=== PATIENT | male | born 1995 | race Hispanic/Latino ===

== ENCOUNTER → 2022-11-29 | Outpatient (CLI) | payer OTHER ==
[~2022-11-29] VITALS: Ht 25.4 cm; Wt 234.5 kg
== END | disposition home or self-care (01) ==
LOC: DTH 10:06
PROVIDERS: ATTEND Surgery
DX: Z71.3 Dietary counseling and surveillance (principal); E66.01 Morbid (severe) obesity due to excess calories; G47.33 Obstructive sleep apnea (adult) (pediatric); K21.9 Gastro-esophageal reflux disease without esophagitis; Z68.45 Body mass index [BMI] 70 or greater, adult
CPT/HCPCS: 97802

== ENCOUNTER → 2023-01-11 | Outpatient (CLI) | payer BC | END | disposition home or self-care (01) | LOC: RAH 08:46 | PROVIDERS: ATTEND Surgery | DX: K44.9 Diaphragmatic hernia without obstruction or gangrene (principal); K21.9 Gastro-esophageal reflux disease without esophagitis; R14.2 Eructation; E66.01 Morbid (severe) obesity due to excess calories | CPT/HCPCS: 74240 ==

== ENCOUNTER 2023-03-13 16:00 | Inpatient (IN) | payer BC, OTHER ==
[~2023-03-13] VITALS: Ht 177.8 cm; Wt 216.4 kg
[2023-03-14 13:20] VITALS: BP 158/78
[2023-03-14 13:21] LABS: BASOPHILS % (AUTO) 0.5 % (0.0-5.0); HEMATOCRIT 44.3 % (42-54); LYMPHOCYTES % (AUTO) 29.2 % (21.0-51.0); MEAN CORPUSCULAR HEMOGLOBIN 27.8 pg (27.0-33.0); MEAN CORPUSCULAR HGB CONC 32.7 g/dL (32.0-36.0); MONOCYTES % (AUTO) 6.3 % (3.0-13.0); NEUTROPHILS % (AUTO) 62.7 % (40.0-77.0); PLATELET COUNT (AUTO) 422 K/uL (130-400); RED BLOOD CELL COUNT(AUTO) 5.21 MIL/uL (4.50-6.20); RED CELL DISTRIBUTION WIDTH 13.8 % (11.0-15.5); WHITE BLOOD COUNT (AUTO) 10.6 K/uL (4.8-10.8)
[2023-03-14 13:46] LABS: ALBUMIN 4.2 g/dL (3.5-5.0); CREATININE 0.8 mg/dL (0.5-1.5); POTASSIUM 3.7 mmol/L (3.5-5.1); TOTAL PROTEIN, SERUM 8.3 g/dL (6.0-8.3)
[2023-03-14] MEDS ORDERED: BUPR-49 PO (13:50)
[2023-03-14] MEDS ORDERED: VITAD50000 PO (13:50)
[2023-03-14] MEDS ORDERED: MULT1CAP57 TD (13:50)
[2023-03-18] VITALS (26 sets, daily range): BP systolic 122–185; BP diastolic 77–103
[2023-03-18] MEDS ORDERED: METRONIDAZOLE 500MG/100ML BAG 200 ML ONE (06:36)
[2023-03-18] MEDS ORDERED: LACTATED RINGERS 1000ML 1,000 ML IV ONE (06:36)
[2023-03-18] MEDS ORDERED: CEFAZOLIN SODIUM 2 GM VIAL ONE (06:36)
[2023-03-18] MEDS ORDERED: BUPIVACAINE/PF 0.5% 30ML VIAL ONE (07:29)
[2023-03-18] MEDS ORDERED: INDOCYANINE GREEN 25 MG VIAL IJ ONE (07:31)
[2023-03-18] MEDS ORDERED: BUPIVACAINE/PF 0.5% 30ML VIAL INJ ONE (07:39)
[2023-03-18] MEDS ORDERED: MIDAZOLAM HCL 1 MG/ML 2ML VIAL ONE (07:43)
[2023-03-18] MEDS ORDERED: PROPOFOL 10 MG/ML 20ML VIAL IV ONE (07:43)
[2023-03-18] MEDS ORDERED: SUCCINYLCHOLINE 200MG/10ML SYR ONE (07:43)
[2023-03-18] MEDS ORDERED: ROCURONIUM 10MG/1ML SYR 10 MG/ML ML ONE (07:43)
[2023-03-18] MEDS ORDERED: LIDOCAINE PF 100MG/5ML (2%) SYRINGE 5ML ONE (07:43)
[2023-03-18] MEDS ORDERED: FENTANYL CITRATE PF 50 MCG/1 ML 5ML AMP IV ONE (07:44)
[2023-03-18] MEDS ORDERED: METOCLOPRAMIDE 10 MG/2 ML VIAL ONE (08:08)
[2023-03-18] MEDS ORDERED: DEXAMETHASONE SOD PHOSPHATE 10MG/ML 1ML VIAL ONE (08:08)
[2023-03-18] MEDS ORDERED: ONDANSETRON 4MG INJ ONE (08:08)
[2023-03-18] MEDS ORDERED: CEFAZOLIN SODIUM 2 GM VIAL IVPB ONE (08:21)
[2023-03-18] MEDS ORDERED: PHENYLEPHRINE HCL 10 MG/ML 1ML VIAL IV ONE (08:28)
[2023-03-18] MEDS ORDERED: GLYCOPYRROLATE 1 MG/5 ML SYRINGE ONE (09:41)
[2023-03-18] MEDS ORDERED: MEPERIDINE-PF 25 MG/ML SYG ONE ×2 (09:43→10:34)
[2023-03-18] MEDS: ENOXAPARIN SODIUM 30 MG/0.3 ML SQ SCH ×2 (10:00→20:53)
[2023-03-18] MEDS ORDERED: PROCHLORPERAZINE 10MG/2ML INJ IV PRN (10:00)
[2023-03-18] MEDS: 1/2NS+20MEQ KCL/1000ML 1,000 ML IV SCH ×3 (10:00→21:33)
[2023-03-18] MEDS ORDERED: KETOROLAC 30MG VIAL (30MG/ML) IV PRN (10:00)
[2023-03-18] MEDS ORDERED: ONDANSETRON 4MG INJ IVP PRN (10:00)
[2023-03-18] MEDS ORDERED: SUGAMMADEX SODIUM 200 MG/2 ML VIAL IV ONE (10:20)
[2023-03-18] MEDS: MORPHINE 2 MG SYG IVP PRN ×3 (12:40→23:36)
[2023-03-19 03:57] VITALS: BP 115/67
[2023-03-19] MEDS: 1/2NS+20MEQ KCL/1000ML 1,000 ML IV SCH (05:15)
[2023-03-19] MEDS: HYDROCODONE/ACETAMINOPHEN 7.5/325 MG 15 ML UDCUP PO PRN ×3 (05:19→12:56)
[2023-03-19 08:30] VITALS: BP 115/68
[2023-03-19] MEDS ORDERED: PANTOPRAZOLE 40 MG/VIAL IVP SCH (09:00)
[2023-03-19] MEDS: ENOXAPARIN SODIUM 30 MG/0.3 ML SQ SCH (09:23)
[2023-03-19 12:37] VITALS: BP 108/63
[2023-03-19 16:00] VITALS: BP 127/76
== END 2023-03-19 18:25 | disposition home or self-care (01) | DRG 621 ==
LOC: DAHIP 03-18 06:17 → 3DH 03-18 10:40
PROVIDERS: ADMIT Surgery; ATTEND Surgery
PROC: 0DU647Z Supplement Stomach with Autologous Tissue Substitute, Percutaneous Endoscopic Approach (ICD-10-PCS; 2023-03-18)
PROC: 0DJ08ZZ Inspection of Upper Intestinal Tract, Via Natural or Artificial Opening Endoscopic (ICD-10-PCS; 2023-03-18)
PROC: 8E0W4CZ Robotic Assisted Procedure of Trunk Region, Percutaneous Endoscopic Approach (ICD-10-PCS; 2023-03-18)
PROC: 0DB64Z3 Excision of Stomach, Percutaneous Endoscopic Approach, Vertical (ICD-10-PCS; principal; 2023-03-18 07:30)
DX: E66.01 Morbid (severe) obesity due to excess calories (principal); Z68.44 Body mass index [BMI] 60.0-69.9, adult; Z20.822 Contact with and (suspected) exposure to COVID-19; F32.9 Major depressive disorder, single episode, unspecified; F41.9 Anxiety disorder, unspecified; K76.0 Fatty (change of) liver, not elsewhere classified; Z79.899 Other long term (current) drug therapy
CPT/HCPCS: 36415; 43235; 80053; 85025; 86850; 86900; 86901; 87426; 94760; 97039; A4606; C9113; G0378; J0330; J0780; J1100; J1650; J1885; J2001; J2175; J2250; J2270; J2370; J2405; J2704; J2765; J3010; J3480; J3490; J7120